=== PATIENT | female | born 1945 | race Caucasian/White ===

== ENCOUNTER 2017-11-23 10:35 | Emergency (ER) | payer OTHER ==
[2017-11-23 10:49] VITALS: BP 156/59; BMI 38.7
--- NOTE | 2017-11-23 11:14 | DR.URIAD ---
HPI - Time Seen Time seen: 11:09 - PCP Primary Care Physician: CLAUDIA IN [place] - Complaint Chief Complaint Doctors Comments: Coughing spell since yesterday. She has no SOB but she's wheezing some. There is no chest pain. She recently had Bronchitis 3 weeks and was treated with Levaquin. This is a recurrence of symptoms. The has a hx. of SLE. Chief Complaint:: [place] PT HAS HX OF LUPUS AND SHE WAS DX WITH BRONCHITIS 3 WEEKS S AGO AND SHE WAS PLACED ON LEVAQUIN,, PT STATES YESTERDAY EVENING SHE STARTED WHEEZING, AND COUGHING,, - Reviewed Nurses Notes Reviewed: Yes - Source History Provided: Patient - Mode of Arrival Mode of Arrival: Ambulatory - Timing Onset of Chief Complaint: 11/22/17 - Context Recent Treated Infections: URI History of Respiratory: Bronchitis - Quality Quality of Cough: Nonproductive Rhinorrhea: None Shortness of Breath: Mild - Associated Signs and Symptoms Other Signs and Symptoms: Cough PMH - PMH Past Medical History: Yes Past Medical History: Diabetes Past Medical History Comment: LUPUS. Past Surgical History: Yes Surgical History: Appendectomy, Cholecystectomy, Hysterectomy Past Surgical History Comment: NECK AND BACK, FOOT, LEFT ARM, STENT TO RCA. . - Family History History of Family Medical Conditions: Yes Family Medical History Comment: HEART ON MOTHER AND FATHER SIDE.. - Social History Does patient currently use any type of tobacco product: No Have you used tobacco products in the last 12 months: No Type of Tobacco Use: None Does any household member use tobacco: No Alcohol Use: None Do you use any recreational Drugs:: No Lives With: Family Lives Where: Home - infectious screening In the last 2 months have you had wt loss of >10#?: NO Have you had fever, night sweats or hemotysis?: No Have you traveled outside the country in the last 6 months?: No Isolation: Standard ROS - Review of Systems Constitutional: No Symptoms Reported Eyes: No Symptoms Reported ENTM: No Symptoms Reported Respiratoy: Non-Productive Cough Cardiovascular: No Symptoms Reported Gastrointestinal/Abdominal: No Symptoms Reported Genitourinary: No Symptoms Reported Neurological: No Symptoms Reported Musculoskeletal: No Symptoms Reported Integumentary: No Symptoms Reported Hematologic/Lymphatic: No Symptoms Reported Endocrine: No Symptoms Reported Psychiatric: No Symptoms Reported All Other Systems: Reviewed and Negative PE - Vital Signs Vitals: Temperature 97.0 F Pulse Rate 88 Respiratory Rate 18 Blood Pressure 156/59 O2 Sat by Pulse Oximetry 96 - General Limitations: No Limitations General Appearance: Alert, In No Apparent Distress - Head Head Exam: Normal Inspection - Eyes Eye exam: Normal Appearance - ENT ENT Exam: Normal Exam External Ear Exam: Normal External Inspection - Neck Neck Exam: Normal Inspection, Full ROM, Trachea Midline - Chest Chest Inspection: Normal Inspection, Symmetric Chest Wall Rise - Respiratory Respiratory Exam: Normal Lung Sounds Bilat - Cardiovascular Cardiovascular Exam: Regular Rate, Normal Rhythm - Abdominal Exam Abdominal Exam: Normal Inspection, Normal Bowel Sounds, Soft - Extremeties Extremities Exam: Normal Inspection - Back Back Exam: Normal Inspection - Neurologic Neurological Exam: Alert, Oriented X3, CN II-XII Intact - Psychiatric Psychiatric Exam: Normal Affect, Normal Mood - Skin Skin Exam: Warm, Dry, Intact, Normal Color ROR - Labs Reviewed Result Diagrams: 11/23/17 11:40 Laboratory: WBC 8.8 X10^3/uL (3.6-10.0) 11/23/17 11:40 RBC 4.19 X10^6/uL (3.5-5.4) 11/23/17 11:40 Hgb 11.5 g/dL (12.0-16.0) L 11/23/17 11:40 Hct 34.7 % (36.0-47.0) L 11/23/17 11:40 MCV 82.7 fL (80.0-100.0) 11/23/17 11:40 MCH 27.6 pg (27.0-34.0) 11/23/17 11:40 MCHC 33.3 g/dL (33.0-35.0) 11/23/17 11:40 RDW 15.7 % (11.6-16.5) 11/23/17 11:40 Plt Count 326 X10^3/uL (150.0-450.0) 11/23/17 11:40 MPV 8.3 fL (7.4-11.0) 11/23/17 11:40 Neut % 68.3 % (42.0-75.0) 11/23/17 11:40 Lymph % 22.1 % (21.0-51.0) 11/23/17 11:40 Luna % 4.6 % (0.0-13.0) 11/23/17 11:40 Eos % 3.9 % (0.9-2.9) H 11/23/17 11:40 Baso % 1.1 % (0.2-1.0) H 11/23/17 11:40 Neut # 6.0 x10^3/uL (2.2-4.8) H 11/23/17 11:40 Lymph # 1.9 X10^3/uL (1.3-2.9) 11/23/17 11:40 Luna # 0.4 x10^3/uL (0.3-0.8) 11/23/17 11:40 Eos # 0.3 x10^3/uL (0.0-0.2) H 11/23/17 11:40 Baso # 0.1 X10^3/uL (0.0-0.1) 11/23/17 11:40 Absolute Nucleated RBC 0.0 /100WBC 11/23/17 11:40 - XRAY XRAY Interpreted by: Self (CXR: NAD) - Diagnosis Discharge Problem: Bronchitis - Discharge Plan Disposition: 01 HOME, SELF-CARE Condition: Stable - Follow ups/Referrals Follow ups/Referrals: NFD,None [Primary Care Provider] - 3 days - Instructions
[2017-11-23] MEDS ORDERED: SOLU-Medrol 125 MG VIAL IM ONE (11:17)
[2017-11-23] MEDS ORDERED: ROBITUSSIN (PLAIN) PO ONE (11:27)
[2017-11-23] MEDS ORDERED: SOLU-Medrol 125 MG VIAL ONE (11:30)
[2017-11-23 11:47] LABS: BASOPHILS # (AUTO) 0.1 X10^3/uL (0.0-0.1); BASOPHILS % (AUTO) 1.1 % (0.2-1.0); EOSINOPHILS # (AUTO) 0.3 x10^3/uL (0.0-0.2); EOSINOPHILS % (AUTO) 3.9 % (0.9-2.9); HEMATOCRIT 34.7 % (36.0-47.0); HEMOGLOBIN 11.5 g/dL (12.0-16.0); LYMPHOCYTES # (AUTO) 1.9 X10^3/uL (1.3-2.9); LYMPHOCYTES % (AUTO) 22.1 % (21.0-51.0); MEAN CORPUSCULAR HEMOGLOBIN 27.6 pg (27.0-34.0); MEAN CORPUSCULAR HGB CONC 33.3 g/dL (33.0-35.0); MEAN CORPUSCULAR VOLUME 82.7 fL (80.0-100.0); MEAN PLATELET VOLUME 8.3 fL (7.4-11.0); MONOCYTES # (AUTO) 0.4 x10^3/uL (0.3-0.8); MONOCYTES % (AUTO) 4.6 % (0.0-13.0); NEUTROPHILS % (AUTO) 68.3 % (42.0-75.0); PLATELET COUNT 326 X10^3/uL (150.0-450.0); RED BLOOD COUNT 4.19 X10^6/uL (3.5-5.4); RED CELL DISTRIBUTION WIDTH 15.7 % (11.6-16.5); WHITE BLOOD COUNT 8.8 X10^3/uL (3.6-10.0)
--- NOTE | 2017-11-23 13:07 | RAD ---
History: Cough and wheezing Study: PA and lateral chest Comparison: None Findings: There is increased AP diameter of the thorax. There are mildly increased interstitial lung markings. There is no lung consolidation or atelectasis and there is no effusion. The heart size is p rominent. Impression: Apparent COPD, no definite acute disease. Reported By:
== END 2017-11-23 13:06 | disposition home or self-care (01) ==
LOC: ER 10:35
DX: J40 Bronchitis, not specified as acute or chronic (principal)
CPT/HCPCS: 36415; 71020; 85025; 96372; 99282; 99283; J2930